=== PATIENT | male | born 1965 | race Caucasian/White ===

== ENCOUNTER 2018-10-17 10:05 | Emergency (ER) | payer OTHER ==
[~2018-10-17] VITALS: Ht 185.4 cm; Wt 92.7 kg
[2018-10-17] MEDS ORDERED: CYCL-1 PO (10:42)
[2018-10-17] MEDS ORDERED: celeCOXIB 100mg capsule PO ONE (11:20)
[2018-10-17] MEDS ORDERED: LORazepam 2 mg/ml vial IM ONE (11:20)
[2018-10-17 11:49] VITALS: BP 129/84
== END 2018-10-17 11:51 | disposition home or self-care (01) ==
LOC: ER 10:06
DX: G58.8 Other specified mononeuropathies (principal); M62.838 Other muscle spasm; H53.143 Visual discomfort, bilateral
CPT/HCPCS: 96372; 99283; J2060

== ENCOUNTER 2019-07-20 14:20 | Emergency (ER) | payer OTHER ==
[~2019-07-20] VITALS: Ht 185.4 cm; Wt 93.0 kg
[~2019-07-20 14:20] MED LIST: CYCL-1 PO
[2019-07-20 14:58] LABS: BASOPHILS # (AUTO) 0.1 X10'3 (0-0.2); BASOPHILS % (AUTO) 1.5 % (0-1); EOSINOPHILS # (AUTO) 0.1 X10'3 (0-0.9); EOSINOPHILS % (AUTO) 1.6 % (0-6); HEMATOCRIT 46.2 % (42.0-52.0); HEMOGLOBIN 15.4 g/dl (14.0-17.9); LYMPHOCYTES # (AUTO) 1.6 X10'3 (1.1-4.8); LYMPHOCYTES % (AUTO) 22.3 % (21-51); MEAN CORPUSCULAR HEMOGLOBIN 30.3 PG (27.0-31.0); MEAN CORPUSCULAR HGB CONC 33.3 g/dL (33.0-36.5); MEAN PLATELET VOLUME 8.3 FL (7.4-10.4); MONOCYTES # (AUTO) 0.4 X10'3 (0-0.9); NEUTROPHILS % (AUTO) 68.6 % (42-75); PLATELET COUNT 340 X10'3 (140-440); RED BLOOD COUNT 5.08 X10'6 (4.70-6.10); WHITE BLOOD COUNT 7.4 X10'3 (4.5-11.0)
[2019-07-20 15:12] LABS: ALANINE AMINOTRANSFERASE 143 U/L (12-78); ALBUMIN 3.8 G/DL (3.4-5.0); ALBUMIN/GLOBULIN RATIO 1.1 (1.1-1.5); ALKALINE PHOSPHATASE 47 IU/L (46-116); ANION GAP 6 (8-16); ASPARTATE AMINO TRANSFERASE 67 U/L (10-37); BILIRUBIN,TOTAL 0.8 MG/DL (0.1-1.0); BLOOD UREA NITROGEN 19 MG/DL (7-18); BUN/CREATININE RATIO 14.8 (5.4-32.0); CALCIUM 9.6 MG/DL (8.5-10.1); CHLORIDE 102 MMOL/L (99-107); CREATININE 1.28 MG/DL (0.60-1.10); GLUCOSE 203 MG/DL (70-104); SODIUM 135 MMOL/L (135-145); TOTAL CARBON DIOXIDE 27.2 MMOL/L (24-32); TOTAL PROTEIN 7.2 G/DL (6.4-8.2); eGFR 59 ML/MIN
[2019-07-20] MEDS ORDERED: iohexol 350MG/ML 100ml bottle IV ONE (15:21)
[2019-07-20 18:04] VITALS: BP 126/96
== END 2019-07-20 18:07 | disposition home or self-care (01) ==
LOC: ER 14:21
DX: I35.0 Nonrheumatic aortic (valve) stenosis (principal); I10 Essential (primary) hypertension; F32.9 Major depressive disorder, single episode, unspecified; K21.9 Gastro-esophageal reflux disease without esophagitis; Z72.89 Other problems related to lifestyle; Z87.891 Personal history of nicotine dependence
CPT/HCPCS: 36415; 71045; 71275; 80053; 83880; 84484; 85025; 87081; 93005; 93306; 99284; Q9967

== ENCOUNTER 2021-03-25 20:18 | Emergency (ER) | payer OTHER ==
[~2021-03-25] VITALS: Ht 185.4 cm; Wt 86.8 kg
[2021-03-25 20:30] VITALS: BP 144/92
== END 2021-03-25 22:51 | disposition home or self-care (01) ==
LOC: ER 20:19
DX: Z04.1 Encounter for examination and observation following transport accident (principal)
CPT/HCPCS: 99283